=== PATIENT | female | born 1995 | race Caucasian/White ===

== ENCOUNTER 2022-09-30 11:06 | Outpatient (CLI) | payer OTHER, SELFPAY | END 2022-09-30 11:07 | disposition home or self-care (01) | PROVIDERS: PCP Physician Assistant; Visit Provider Internal Medicine Gastroenterology | DX: R93.3 Abnormal findings on diagnostic imaging of other parts of digestive tract (principal); K64.9 Unspecified hemorrhoids; K52.9 Noninfective gastroenteritis and colitis, unspecified; R19.7 Diarrhea, unspecified | CPT/HCPCS: 45380; 88305; 88342; J2250; J3010 ==

== ENCOUNTER 2023-07-01 13:05 | Outpatient (CLI) | payer OTHER, SELFPAY ==
--- NOTE | 2023-07-01 13:00 | CRLHL7_ITS ---
For Patients: As a result of the Cures Act, medical imaging exams and procedure reports are released immediately into your electronic medical record. You may view this report before your referring provider. If you have questions, please contact your health care provider. INDICATION: First trimester scan, establish dates. COMPARISON: None. TECHNIQUE: Real-time kennedy-scale imaging of the pelvis was performed. FINDINGS: Sonographic imaging demonstrates a single living intrauterine gestation. The embryo demonstrates a regular cardiac rate measuring 171 beats per minute. The embryo`s crown-rump length measurement of 2.8 cm corresponds to a gestational age of 9 weeks 4 days with a sonographic due date of 01/30/2024. There is a normal-appearing yolk sac. There are no gross abnormalities noted within the embryo at this early state of development. The gestational sac has a normal appearance. There is no evidence of a perigestational hemorrhage. The amount of fluid within the sac appears appropriate for gestational age. The cervix is closed. The myometrium appears normal. The ovaries are of normal size. Corpus luteal cyst right ovary. There are no suspicious fluid collections noted in the cul-de-sac. IMPRESSION: Normal first trimester OB ultrasound exam. Gestational age calculated at 9 weeks 4 days with a sonographic due date of 01/30/2024. Dictated by Maverick Armijo MD @ 07/02/2023 7:06:54 AM (Electronically Signed)
== END 2023-07-01 13:06 | disposition home or self-care (01) ==
LOC: US 13:06
PROVIDERS: PCP Physician Assistant; Visit Provider Advanced Practice Midwife
DX: Z34.91 Encounter for supervision of normal pregnancy, unspecified, first trimester (principal); Z3A.09 9 weeks gestation of pregnancy
CPT/HCPCS: 76817; 86703; 86706; 86803; 86850; 86900; 86901; 87086; 87340

== ENCOUNTER 2023-07-01 15:23 | Outpatient (CLI) | payer OTHER, SELFPAY | END 2023-07-01 15:24 | disposition home or self-care (01) | PROVIDERS: PCP Physician Assistant; Referring Provider Physician Assistant; Visit Provider Advanced Practice Midwife | DX: Z34.91 Encounter for supervision of normal pregnancy, unspecified, first trimester (principal); Z3A.09 9 weeks gestation of pregnancy | CPT/HCPCS: 86592; 86703; 86704; 86706; 86762; 86787; 86803; 86850; 86900; 86901; 87086; 87186; 87340 ==

== ENCOUNTER 2023-09-19 10:54 | Outpatient (CLI) | payer OTHER, SELFPAY ==
--- NOTE | 2023-09-19 11:00 | CRLHL7_ITS ---
For Patients: As a result of the Century Cures Act, medical imaging exams and procedure reports are released immediately into your electronic medical record. You may view this report before your referring provider. If you have questions, please contact your health care provider. INDICATION: Evaluate anatomy. COMPARISON: 07/01/2023 TECHNIQUE: Real time kennedy scale imaging of the fetus was performed as well as color Doppler analysis of the umbilical vessels. FINDINGS: Sonographic imaging demonstrates a single living intrauterine gestation. Fetus demonstrates a regular cardiac rate of 135 beats per minute. Fetus has a variable position. The placenta lies anteriorly without evidence of placenta previa. Placental edge 4.5 cm from the internal cervical os. Amniotic fluid volume appears normal. Single deepest vertical pocket: 4.8 cm. The cervix is closed and measures 4.1 cm in length. The composite ultrasound gestational age is calculated at 21 weeks 1 day with an estimated sonographic due date of 01/29/2024. The estimated weight is 414 grams which lies at the 69th %. The following biometric measurements were obtained: Biparietal diameter: 5.0 cm/21 weeks 1 day 63rd% Head circumference: 18.6 cm/21 weeks 0 days 45th% Abdominal circumference: 16.0 cm/21 weeks 1 day 52nd% Femur length: 3.7 cm/21 weeks 4 days 68th% The HC/AC ratio measures: 1.16 range (1.06-1.25) On anatomic survey, there is a normal appearance of the cerebral ventricles, cavum septi pellucidi, cisterna magna and cerebellum. The nose, lips, and facial profile appear normal. The cervical, thoracic and lumbar spine are well visualized and appear normal. There is a normal four-chamber heart view and the left and right ventricular outflow tracts appear normal. The diaphragm and stomach appear normal. The kidneys and bladder also appear normal. There is a normal three-vessel cord and cord insertion site. The four extremities appear normal. IMPRESSION: Normal OB ultrasound exam with concordance of clinical and sonographic dating. No intrinsic abnormalities noted on anatomic survey. Four-chamber heart view appears normal. Dictated by Maverick Armijo MD @ 09/19/2023 12:43:54 PM (Electronically Signed)
== END 2023-09-19 10:55 | disposition home or self-care (01) ==
LOC: US 10:54
PROVIDERS: PCP Physician Assistant; Visit Provider Advanced Practice Midwife
DX: Z34.92 Encounter for supervision of normal pregnancy, unspecified, second trimester (principal); Z3A.21 21 weeks gestation of pregnancy
CPT/HCPCS: 76805

== ENCOUNTER 2023-11-14 13:20 | Outpatient (CLI) | payer OTHER, SELFPAY | END 2023-11-14 13:21 | disposition home or self-care (01) | LOC: NFLDREF 11-17 02:34 | PROVIDERS: PCP Physician Assistant; Referring Provider Physician Assistant; Visit Provider Advanced Practice Midwife | DX: Z34.93 Encounter for supervision of normal pregnancy, unspecified, third trimester (principal); Z3A.28 28 weeks gestation of pregnancy | CPT/HCPCS: 86592 ==

== ENCOUNTER 2023-11-19 11:41 | Outpatient (CLI) | payer OTHER, SELFPAY | END 2023-11-19 11:42 | disposition home or self-care (01) | LOC: NFLDREF 11:42 | PROVIDERS: PCP Physician Assistant; Visit Provider Advanced Practice Midwife | DX: N93.9 Abnormal uterine and vaginal bleeding, unspecified (principal) | CPT/HCPCS: 87086 ==

== ENCOUNTER 2023-12-23 14:17 | Outpatient (CLI) | payer OTHER, SELFPAY | END 2023-12-23 14:18 | disposition home or self-care (01) | LOC: NFLDREF 12-24 07:00 | PROVIDERS: PCP Physician Assistant; Referring Provider Physician Assistant; Visit Provider Advanced Practice Midwife | DX: Z34.83 Encounter for supervision of other normal pregnancy, third trimester (principal) | CPT/HCPCS: 82728 ==

== ENCOUNTER 2024-01-07 09:02 | Outpatient (RCR) | payer OTHER, SELFPAY ==
--- NOTE | 2023-12-30 12:48 | PC.NURSE ---
Diagnosis: Iron deficiency anemia
--- NOTE | 2023-12-30 12:57 | URNOTE ---
Request received for authorization for Infed ([id number]). Prior authorization is not required per Erica on behalf of [employer].
[2024-01-07 09:10] VITALS: BP 121/82; PULSE 88; RESP 17; TEMP 36.7; O2SAT 100
[2024-01-07] MEDS: IRON DEXTRAN COMPLEX 25 MG in 0.9 % SODIUM CHLORIDE 100 ml 100 ML 402 MG IVPB (09:45)
[2024-01-07] MEDS: 0.9 % SODIUM CHLORIDE 250 ml IV (09:49)
[2024-01-07] MEDS: SODIUM CHLORIDE 0.9 % (FLUSH) 10 ML SYRINGE IVF (09:49)
[2024-01-07 10:48] VITALS: BP 107/72; PULSE 84; RESP 15; TEMP 36.1; O2SAT 96
[2024-01-07] MEDS: IRON DEXTRAN COMPLEX 975 MG in 0.9 % SODIUM CHLORIDE 250 ml 250 ML 269.5 MG IVPB (10:57)
[2024-01-07 12:40] VITALS: BP 120/81; PULSE 88; RESP 16; TEMP 36.3; O2SAT 94
== END 2024-07-05 23:59 | disposition home or self-care (01) ==
LOC: CCIC 09:02
PROVIDERS: PCP Physician Assistant; Referring Provider Physician Assistant; Visit Provider Advanced Practice Midwife
DX: D50.9 Iron deficiency anemia, unspecified (principal)
CPT/HCPCS: 96365; 96376; J1750; J7050

== ENCOUNTER 2024-01-07 13:36 | Outpatient (CLI) | payer OTHER, SELFPAY ==
[2024-01-08 15:11] LABS: Strep B DNA Probe Negative (Negative)
[2024-01-09 01:35] LABS: Strep B Susceptibility Needed? No
== END 2024-01-07 13:37 | disposition home or self-care (01) ==
PROVIDERS: PCP Physician Assistant; Visit Provider Advanced Practice Midwife
DX: Z34.93 Encounter for supervision of normal pregnancy, unspecified, third trimester (principal)
CPT/HCPCS: 87081; 87653; 96365; 96376; J1750

== ENCOUNTER 2024-01-27 06:19 | Inpatient (IN) | payer OTHER, SELFPAY ==
[2024-01-27] VITALS (97 sets, daily range): BP systolic 73–133; BP diastolic 41–83; PULSE 72–146; RESP 16; TEMP 36.8–37.4; O2SAT 99–100; BMI 30.3
[2024-01-27 05:15] LABS: Amnisure Rom* Negative
--- NOTE | 2024-01-27 06:44 | W.PM.LDBA ---
Subjective History of Present Illness Narrative: Tiffani is a 28 year old at 39 3/7 weeks gestation being admitted to Labor and Delivery for spontaneous onset of labor. She reports her labor began last evening while working. She was off at 2 am and went home to rest. Her contractions became more regular around 3 am where she then decided to present to triage. She denies any leaking of fluid or bleeding. She is supported in labor by her , Kumar. Her full history and physical was dictated by RANDEE Mcgee on 01/14/2024. Please see this for details. Specific Issues/Plans HB: Kumar H&P 01/14/24 by Juana Nye CNM 1. Crohn's colitis Recommended VTE prophylaxis if hospitalized and after delivery. (UpToDate) GI Dr Woody Rubin managing Remicade IV every 8 weeks Recommended baby ASA, pt to check with GI first 2. Recent gluteal abscess requiring drainage 06/06/23 incision and drainage, tx with antibiotics 3. Hx heart murmur as child, RESOLVED 4. Anemia. Hgb 10.1 at NOB. 34 wks 10.6 recommended iron supp was taking iron gummy 5. Asymptomatic e coli at NOB. Tx w/ antibiotics 07/01/2023 6. Declines 1 hour gct d/t Crohn's. Not willing to poke herself QID. Ordering continuous glucometer. All values WNL. OB - Problem Based A/P Additional Plan (1) Pain during labor: Status: Acute (2) Spontaneous onset of labor: Status: Acute (3) 39 weeks gestation of : Status: Acute (4) Crohn's colitis: Status: Acute Plan ASSESSMENT:? 28 at 39 3/7 weeks gestation? complicated by:?Crohns colitis, hx of heart murmur as child, anemia, asymptomatic bacteruria at NOB treated Labor type: Spontaneous, early labor? Category 1 FHR pattern.?? Labor complicated by: none? GBS negative? ? PLAN:? 1. Routine intrapartum cares as ordered. Continue with expectant management? 2. Monitoring per policy, intermittent? 3. Planning unmedicated . Desires water . Consent signed. Hep C negative. Candidate for analgesia of choice if desired.?? 4. Patient encouraged to reposition and ambulate to promote physiologic labor and .? 5. Anticipate ? Delivery/Labor/Induction Plan Plan: expectant management OB Exam Physical Exam Vital signs: Temp Pulse Resp BP 98.2 F 83 16 111/71 01/27/24 05:59 01/27/24 05:59 01/27/24 05:59 01/27/24 05:59 Narrative: Vitals Reviewed Constitutional:? Alert and oriented x3 HEENT:? Normocephalic, atraumatic Neck:? Supple Lungs:? Clear to auscultation bilaterally Heart:? Regular rate and rhythm, no murmur, rub or gallop Abdomen:? Soft, nontender, and gravid. Vertex by Donald's, confirmed with cervical exam. Extremities:? No edema or erythema Cervix: 5 cm/80%/-2 station/vertex per RN NST: 130 bpm/moderate variability/15x15 accelerations/early decelerations/contractions every 2-4 minutes Detailed Labor and Delivery Exam Patient Gravid: Yes
[2024-01-27 08:08] LABS: Basophils Percent Auto 0.1 % (0.0-3.0); Eosinophils Percent Auto 0.1 % (0.0-7.0); Hematocrit 36.5 % (33.0-51.0); Hemoglobin* 11.7 gm/dL (12.0-16.0); Immature Granulocytes Pct Auto 0.4 %; Lymphocytes Percent Auto 13.2 % (20-44); Mean Corpuscular HGB Conc 32 gm/dL (32-36); Mean Corpuscular Hemoglobin 28 pg (26-34); Mean Corpuscular Volume 86 fL (80-100); Monocytes Percent Auto 5.6 % (0.0-11.0); Neutrophils Percent Auto 80.6 % (42.0-72.0); Platelet Count* 260 K/uL (140-440); RDW Coefficient of Variation % 16.9 % (11.5-15.5); Red Blood Count 4.24 m/uL (4.00-5.20); White Blood Count* 13.87 K/uL (4.50-11.00)
[2024-01-27 08:11] LABS: Slide Review Reflex No
--- NOTE | 2024-01-27 08:57 | P.OBPN_ITS ---
Subjective Date Seen: 01/27/24 Narrative: ?Tiffani is coping well with labor pain/contractions. ?Kumar is with her for support. ?She requested a cervical exam and is now . She would like an epidural for comfort and pain management.? Objective Exam: VSS, afebrile General Appearance:? Calm, cooperative. ?No acute distress. ? Psychiatric Exam: Alert and oriented, appropriate affect Abdomen: Gravid Ctx: ?Q 2-3 min apart. ? ? ?Strong FHTs: ?Baseline: 145. ? ? Variability: moderate. ?EFM recently placed, previously was doing intermittent monitoring SVE: Membranes: Intact ? Vital Signs: Last Vital Signs Temp 98.2 F 01/27/24 05:59 Pulse 83 01/27/24 05:59 Resp 16 01/27/24 05:59 BP 111/71 01/27/24 05:59 Plan Plan: Assessment:?? at 39.3 weeks gestation?? GBS negative Patient is coping well with challenges of labor.?? Labor type: Spontaneous, Active labor? Category 1 FHR pattern.? complicated by: Crohns colitis, hx of heart murmur as child, anemia, asymptomatic bacteruria at [facility] treated Labor complicated by: none Plan:?? Anesthesia consult for epidural placement Continuous monitoring now with epidural placement. Continue with routine intrapartum cares as ordered.?? Patient encouraged to move and change positions to promote physiologic labor and .?? Anticipate progress to NVD. ?
[2024-01-27] MEDS: LACTATED RINGERS 1000 ML 1,000 ML IV ×2 (09:03→10:01)
[2024-01-27] MEDS: ROPIVACAINE 0.2% 100 ml 100 ML 12 MG EPIDURAL ×2 (09:40→17:11)
[2024-01-27] MEDS: BUPIVACAINE 0.25% PF 10 ML 10 ML ML EPIDURAL (09:40)
[2024-01-27] MEDS: PHENYLEPHRINE 100 MCG/ML SYRINGE IVP ×2 (09:46→10:33)
[2024-01-27] MEDS: ONDANSETRON 2 MG/ML inj 4 MG IV (10:31)
[2024-01-27] MEDS: ePHEDrine sulfate 5 MG/ML inj 10 MG IVP (10:47)
--- NOTE | 2024-01-27 10:51 | PM.ANBPRC ---
[facility] Medical History History of cardiac murmur as a child ?Z87.898 - Personal history of other specified conditions (ICD-10) Gluteal abscess ?L02.31 - Cutaneous abscess of buttock (ICD-10) Surgical History Fonda teeth extracted ?K08.409 - Partial loss of teeth, unspecified cause, unspecified class (ICD-10) Family History (Updated 01/14/24 @ 13:52 by Sara Nye CNM) Mother High blood pressure Grandfather Stroke Grandmother Alzheimers disease Grandfather Colon cancer Father Cancer of kidney Social History Narrative: SOCIAL? ? Education: Bachelors? ? Work: [employer] for [employer]? ? Partner: Kumar? , infantry weapons officer? Lives with: Kumar? ? Pets: 2 dogs? ? Abuse: Denies past ? Unable to assess current, partner present? ? Special Diet: no dairy, (cheese is ok). Eats high fiber foods, Low sugar, avoids very processed meats. ? ? Ok with a blood transfusion: yes? ? Culture or scientology beliefs: denies? RISK FACTORS? ? Exercise Times/wk: about 1 year ago, 20-30 mins cardio and weightlifting about 3-4 times a week. No currently doing but plans to start again when nausea improves. ? ? Depression/Anxiety: denies? ? Previous Treatments NA ? Therapy NA BENITO: 4 PHQ 9: 3? ? Seat Belt Use: Routinely ? Smoking: Denies past/present? ? Alcohol/day: Denies while ? ?Rarely when not Caffeine: Diet Coke daily maybe two. ? ? Drug Use: Denies past/present? What is your current living situation?: I presently have a place to live Problems where you live: no known problems In the past 12 months, utilities in danger of being shut off: no In past 12 months, lack of transportation kept you from medical appts, meetings, work, or getting things needed for daily living: no In the past 12 mos, have been you worried that your food would run out before you had money to buy more?: never true In the past 12 mos, the food you bought just didn't last and you didn't have money to buy more?: never true Smoking Status: Never smoker How often does anyone, including family, friends and others, physically hurt you: never How often does anyone, including family, friends and others, insult or talk down to you: never How often does anyone, including family, friends and others, threaten you with harm: never How often does anyone, including family, friends and others, scream or curse at you: never Little interest or pleasure in doing things: not at all Feeling down, depressed, or hopeless: not at all Meds Home Medications and Allergies Home Medications ?Medication ?Instructions ?Recorded ?Confirmed ?Type infliximab 100 mg intravenous IV 07/01/23 01/20/24 History solution (Remicade) aspirin 81 mg tablet,delayed 81 mg PO QDAY 09/19/23 01/27/24 History release docosahexaenoic acid 200 mg mg PO 09/19/23 01/20/24 History capsule ( DHA) magnesium citrate 100 mg capsule 100 mg PO QDAY PRN 09/19/23 01/27/24 History omeprazole magnesium 20 mg 20 mg PO QDAY 01/14/24 01/27/24 History capsule,delayed release (Acid Evp Chief Exploration Officer (omeprazole)) Allergies Allergy/AdvReac Type Severity Reaction Status Date / Time No Known Drug Allergies Allergy Verified 01/20/24 08:22 Results Labs Labs: Laboratory Results - last 24 hr 01/27/24 01/27/24 04:55 07:41 WBC 13.87 H RBC 4.24 Hgb 11.7 L Hct 36.5 MCV 86 MCH 28 MCHC 32 RDW Coeff of Andreas 16.9 H Plt Count 260 Neut % (Auto) 80.6 H Lymph % (Auto) 13.2 L [place] % (Auto) 5.6 Eos % (Auto) 0.1 Baso % (Auto) 0.1 Neut # (Auto) 11.20 H Lymph # (Auto) 1.80 [place] # (Auto) 0.80 Eos # (Auto) 0.00 Baso # (Auto) 0.00 Abs Immat Gran (auto) 0.10 Imm/Tot Granulo (auto) 0.4 Membrane Rupture Negative Blood Type A Positive Antibody Screen NEGATIVE Vital Signs Vital Signs: Last Vital Signs Temp 98.2 F 01/27/24 05:59 Pulse 86 01/27/24 10:47 Resp 16 01/27/24 05:59 BP 90/52 L 01/27/24 10:47 Pulse Ox 99 01/27/24 09:36 Weight: 80.104 kg Height: 162.56 cm Anesthesia Procedures Epidural Insertion Patient Location: OB Start Time: :15 Stop Time: 09:45 Start Date: 01/27/24 Stop Date: 01/27/24 Reason for Block: procedure for pain Patient Position: sitting Performed By: Gavi More Preanesthetic Checklist: IV checked, risks and benefits discussed, monitors and equipment checked, timeout performed and anesthesia consent Prep: chlorhexidine gluconate Monitoring: blood pressure monitoring, continuous pulse oximetry and heart rate Approach: midline Vertebral Space: lumbar (1-5) Epidural Technique: IDRIS saline Needle Type: Tuohy needle Injection Technique: continuous catheter Needle gauge: 17 Needle Length (cm): 10 cm Needle Insertion Depth (cm): 9 Catheter Gauge: 19 Catheter Type: multi-orifice Catheter at skin depth (cm): 15 Test Dose Result: negative and lidocaine 1.5% with epinephrine 1 to 200,000
--- NOTE | 2024-01-27 11:04 | PM.OBPNL ---
Subjective Date Seen: 01/27/24 Narrative: ?Demetri is coping well with labor pain/contractions. ?Kumar is with her for support. ?She would like to continue with her epidural for comfort and pain management.?She is now feeling only pressure with contractions. She has had some low blood pressures after epidural placement but seems to have stabilized now. Getting second bag of IV fluid currently. Objective Exam: VSS, afebrile General Appearance:? Calm, cooperative. ?No acute distress. ? Psychiatric Exam: Alert and oriented, appropriate affect Abdomen: Gravid Ctx: ?Q 2-4 min apart. ? ? ?Strong FHTs: ?Baseline: 145. ? ? Variability: moderate. ?Accels: -. ? ?Decels: ?-. SVE: 7/100/0 Membranes: ?AROM for minimal fluid. Difficult to tell if clear. Vital Signs: Last Vital Signs Temp 98.2 F 01/27/24 05:59 Pulse 78 01/27/24 11:02 Resp 16 01/27/24 05:59 BP 96/53 L 01/27/24 11:02 Pulse Ox 99 01/27/24 09:36 Assessment Assessment: active labor Amniotic Membrane Status: AROM Status: Category ll Plan Plan: Assessment:?? at 39.3 weeks gestation?? GBS neg Patient is coping well with challenges of labor.?? Labor type: Spontaneous, Active labor? Category 2 FHR pattern.? complicated by: Crohns colitis, hx of heart murmur as child, anemia, asymptomatic bacteruria at B treated Labor complicated by: none? Plan:?? AROM for minimal fluid after discussion of R/B/A, pt consented with shared decision making Continue with routine intrapartum cares as ordered.?? Patient encouraged to move and change positions to promote physiologic labor and .?? Epidural per anesthesia Continuous monitoring now with epidural in place Anticipate progress to NVD. ?
[2024-01-27] MEDS: LACTATED RINGERS 1000 ML 1,000 ML 999 ML IV (11:31)
[2024-01-27] MEDS: OXYTOCIN 30 unit/500 ML in NS 30 UNIT/500 ML BAG IVPB (14:53)
--- NOTE | 2024-01-27 15:37 | PM.OBPNL ---
Subjective Date Seen: 01/27/24 Narrative: ?Tiffani is coping well with labor pain/contractions. ?Kumar is with her for support. ?She would like to continue with her epidural for comfort and pain management.?She was recently started on IV Pitocin for augmentation after not making change for the last 4 hours. She is feeling a lot of pressure with her contractions at this time. Objective Exam: VSS, afebrile General Appearance:? Calm, cooperative. ?No acute distress. ? Psychiatric Exam: Alert and oriented, appropriate affect Abdomen: Gravid Ctx: ?Q 3-5 min apart. ? ? ?Strong FHTs: ?Baseline: 135. ? ? Variability: moderate with periods of minimal. ?Accels: +. ? ?Decels: ?-. SVE: 9/100/0 Membranes: ?AROM clear fluid at 1055 Vital Signs: Last Vital Signs Temp 98.8 F 01/27/24 15:34 Pulse 111 H 01/27/24 15:25 Resp 16 01/27/24 05:59 BP 113/68 01/27/24 15:25 Pulse Ox 99 01/27/24 09:36 Contractions Pitocin Rate (mU/min): 2 Assessment Assessment: active labor Amniotic Membrane Status: AROM Status: Category l Plan Plan: Assessment:?? at 39.3 weeks gestation?? GBS negative Patient is coping well with challenges of labor.?? Labor type: Augmented, Active labor? Category 1 FHR pattern.? complicated by: Crohns colitis, hx of heart murmur as child, anemia, asymptomatic bacteruria at NOB treated ? Plan:?? Continue with IV Pitocin augmentation per protocol Continue with routine intrapartum cares as ordered.?? Patient encouraged to move and change positions to promote physiologic labor and .?? Epidural per anesthesia orders. Anticipate progress to NVD. ?
[2024-01-27] MEDS: LACTATED RINGERS 1000 ML 1,000 ML 125 ML IV ×2 (19:21→20:21)
[2024-01-27] MEDS: LIDOCAINE 1 % PF 30 ML INJECTION (20:45)
--- NOTE | 2024-01-27 21:50 | W.PM.OBVAGDE ---
OB Procedure Vag Delivery Mother Details Mother Details: The patient is a 28 year-old, 2, Para 1, admitted on 01/27/24 at 39.3 weeks gestation. : 2 Para: 1 Weeks Gestation: 39.3 Admission Date: 01/27/24 Additional Details Amniotic Membrane Status: AROM Amniotic Membrane Rupture Date: 01/27/24 Amniotic Membrane Rupture Time: 10:55 Amniotic Membrane Fluid Description: Clear Analgesia/Anesthesia Type: Epidural Waterbirth: No Pitcoin: Yes Intrapartal Events: Labor Augmentation Delivery augmentation: rupture of membranes and pitocin Labor Onset: 02:00 Complete: 19:09 Pushin:09 Heart: heart tones during second stage were continuously monitored. Tachycardic FHR 160-170's with early and late decelerations, moderate then minimal variability. Delivery Details Delivery Date: 01/27/24 Delivery Time: 20:34 Route of delivery: Gender: Female Infant Viability: Alive; Heart Rate Present Position at Delivery: OA Delivery Details: 28?y.o?at 39.3 weeks.? Tiffani arrived in labor after having started stronger contractions early this morning around 0200. She labored until she was approximately 5cm then requested an epidural, after this was placed her cervix was 7 cm, then stalled there with no change for approximately 4 hours. Decision made to start IV Pitocin for augmentation, she then progressed to complete. Was repositioned often while in bed with her epidural in place. At the time she became complete FHR became tachycardic and remained this way until delivery. Pediatric provider was present at delivery for evaluation of immediately after . ? She became complete at 1908.??She pushed in right and left tilt positions effectively.? Spontaneous vaginal delivery at 2033 of?a viable? female .??Delivered in vertex OA position.??Shoulders delivered easily.? Spontaneous cry noted.?? placed on maternal abdomen.??Cord?was clamped and cut after a 5+ minute delay.??Nose and mouth were bulb suctioned.? Shoulder dystocia: no? Nuchal cord: no? Meconium stained?fluid: no? Water : no? ? ? 7 at 1 minute and 9 at 5 minutes.? Weight is pending. ? Placenta delivered spontaneously and?complete?at 2040 with a?3 vessel?cord.?? Bleeding controlled with fundal massage and?pitocin?for AMTSL.? ? Mother and infant were stable after delivery.? ? Lacerations:?Complex lacerations to periurethral area very close to the clitoris and deep 2nd degree vaginal and sulcal tear which was repaired by Dr. Desai, see her note for details. ? Bleeding?post delivery?was: minimal. ?The fundus was firm to palpation.? Blood loss: 500?mL.? Blood loss measurement type: QBL? ? ? Sponge,?lap?and needles counts are correct.? Mother and infant were stable after delivery.? 1 Minute Interval Total Score: 7 5 Minute Interval Total Score: 9 Additional Details Shoulder Dystocia: No Placenta Delivery Time: 20:41 Placental Delivery Description: Spontaneous Delivery repair: Vicryl Procedure Done: Global Blood Loss: 500 Laceration: Vaginal - 2nd Degree (complex tear repaired by Dr. Desai) Blood Loss Measurement Type: QBL Bakri Used: No Sponge/Need Count Correct: Yes Cord Vessel Description: 3 Vessels Event Summary Status: Mother and were stable after delivery. Disposition: floor
[2024-01-28] VITALS: BP 114/78; PULSE 84; RESP 16; TEMP 37; O2SAT 98
[2024-01-28] MEDS: ACETAMINOPHEN 500 MG TABLET 1000 MG PO ×4 (01:03→19:50)
[2024-01-28 03:44] VITALS: BP 112/67; PULSE 86; RESP 18; TEMP 37.1; O2SAT 98
[2024-01-28 06:58] LABS: Hemoglobin* 9.4 gm/dL (12.0-16.0)
[2024-01-28 07:53] VITALS: BP 115/74; PULSE 78; RESP 18; TEMP 36.9; O2SAT 99
[2024-01-28] MEDS: FERROUS SULFATE 325 MG TABLET PO (09:26)
[2024-01-28] MEDS: DOCUSATE SODIUM 100 MG CAPSULE PO (09:26)
[2024-01-28 13:04] VITALS: BP 120/79; PULSE 86; RESP 18; TEMP 36.9; O2SAT 99
--- NOTE | 2024-01-28 14:11 | P.OBPN_ITS ---
OB - PN:Subj Subjective Date Seen: 01/28/24 Patient comments OB post-: no complaints, pain well controlled, tolerating diet and flatus present [place] status: and doing well [place] feeding status: exclusively Narrative: Tiffani is feeling well.? Her pain is well controlled with current medications.?Discussed other option for pain as she is unable to take ibuprofen but she declines the need for this at this time. Encouraged her to reach out of her pain is starting to increase and to not let it get too bad before requesting additional medication. She has no new complaints.? Urinary output is adequate and she is voiding without difficulty.? Has a good appetite, is tolerating a general diet, is passing flatus, and has not had a bowel movement.? Has small amount of rubra lochia.? She is ambulating well.?She is and feels that it is going well at this time. Her hemoglobin this morning is down to 9.4 but denies feeling dizzy, light headed or fatigued. Will start her on PO iron supplement. She was considering going home but baby is to stay for monitoring for an increased temperature after delivery. OB - PN: Obj Exam Physical Exam: Vital signs: Temp Pulse Resp BP Pulse Ox O2 Del Method 98.4 F 86 18 120/79 99 Room Air 01/28/24 13:04 01/28/24 13:04 01/28/24 13:04 01/28/24 13:04 01/28/24 13:04 01/28/24 13:04 Narrative: GENERAL APPEARANCE:? normal affect, alert, no distress? MOOD:? appropriate? CHEST:? clear to auscultation and percussion? HEART:? regular rate and rhythm? ABDOMEN:? soft, non-tender the uterine fundus is U/2 and is appropriate for the stage of recovery. ? PERINEUM:? mild edema of the perineum, there is a 2nd degree laceration that is healing well.? EXTREMITIES:? normal and no edema? OB - PN: Obj Data Labs Labs: Laboratory Results - last 24 hr 01/28/24 05:43 Hgb 9.4 L OB - PN: A/P Delivery Assessment and Plan (1) Crohn's colitis: Status: Acute (2) Lactating mother: Status: Acute (3) care following vaginal delivery: Status: Acute Plan day: 1 Plan: routine care Comments: Anticipate discharge home tomorrow.
--- NOTE | 2024-01-28 14:49 | PM.OBCN1 ---
OB - CN: HPI Date of Consult Date Seen: 01/27/24 Consult date: 01/28/24 Requesting Physician: Reanna Zamora CNM Primary Care Provider: Emily Mathew PA-C Consult Narrative Reason for consult: vaginal repair Narrative: The patient is a 28 year old G 2 P 1011 who just delivered vaginally and i was asked to evaluate and help with repairs of lacerations. History History 2 Elective abortions 1 Para 1 Spontaneous abortions Hx # Term Pregnancies Ectopic pregnancies Hx # Pregnancies Multiple births Number of Living Children 0 Past Pregnancies Del. Date GA/Weeks Outcome Route wt Inf Gender Labor Lgth Anesthesia Location Provider Compli Unknown elective Labs GBS status: negative OB Labs: Lab Assessment Start: 01/27/24 06:11 Freq: ONCE Status: Complete Protocol: PC.OBGBS Activity Type Activity Date Activity User E-sign Co-sign Detail Recorded Client Recorded Date Recorded By Document 01/27/24 06:11 DESSELLIEM Desktop 01/27/24 06:16 DESSELLIEM 01/27/24 06:11 Lab Assessment GBS Status negative GBS Additional Criteria None No Treatment Needed OK Are Labs Available Yes Maternal Blood Type A Maternal RH Factor Positive Evaluate Maternal Rubella Immune Status Immune Hepatitis B Surface Antigen Negative Maternal HIV Status Negative Maternal Syphillis (RPR) Status Negative PFSH PFSH Medical History History of cardiac murmur as a child ?Z87.898 - Personal history of other specified conditions (ICD-10) Gluteal abscess ?L02.31 - Cutaneous abscess of buttock (ICD-10) Surgical History [place] teeth extracted ?K08.409 - Partial loss of teeth, unspecified cause, unspecified class (ICD-10) Family History (Updated 01/14/24 @ 13:52 by Sara Ney CNM) Mother High blood pressure Grandfather Stroke Grandmother Alzheimers disease Grandfather Colon cancer Father Cancer of kidney Social History Narrative: SOCIAL? ? Education: Bachelors? ? Work: dispatcher for [employer]? ? Partner: Kumar? , aviation ordnance officer? Lives with: Kumar? ? Pets: 2 dogs? ? Abuse: Denies past ? Unable to assess current, partner present? ? Special Diet: no dairy, (cheese is ok). Eats high fiber foods, Low sugar, avoids very processed meats. ? ? Ok with a blood transfusion: yes? ? Culture or caodaism beliefs: denies? RISK FACTORS? ? Exercise Times/wk: about 1 year ago, 20-30 mins cardio and weightlifting about 3-4 times a week. No currently doing but plans to start again when nausea improves. ? ? Depression/Anxiety: denies? ? Previous Treatments NA ? Therapy NA BENITO: 4 PHQ 9: 3? ? Seat Belt Use: Routinely ? Smoking: Denies past/present? ? Alcohol/day: Denies while ? ?Rarely when not Caffeine: Diet Coke daily maybe two. ? ? Drug Use: Denies past/present? What is your current living situation?: I presently have a place to live Problems where you live: no known problems In the past 12 months, utilities in danger of being shut off: no In past 12 months, lack of transportation kept you from medical appts, meetings, work, or getting things needed for daily living: no In the past 12 mos, have been you worried that your food would run out before you had money to buy more?: never true In the past 12 mos, the food you bought just didn't last and you didn't have money to buy more?: never true Smoking Status: Never smoker How often does anyone, including family, friends and others, physically hurt you: never How often does anyone, including family, friends and others, insult or talk down to you: never How often does anyone, including family, friends and others, threaten you with harm: never How often does anyone, including family, friends and others, scream or curse at you: never Little interest or pleasure in doing things: not at all Feeling down, depressed, or hopeless: not at all Meds Home Medications and Allergies Home Medications ?Medication ?Instructions ?Recorded ?Confirmed ?Type infliximab 100 mg intravenous IV 07/01/23 01/20/24 History solution (Remicade) aspirin 81 mg tablet,delayed 81 mg PO QDAY 09/19/23 01/27/24 History release docosahexaenoic acid 200 mg 1 mg PO DAILY 09/19/23 01/27/24 History capsule ( DHA) magnesium citrate 100 mg capsule 100 mg PO QDAY PRN 09/19/23 01/27/24 History omeprazole magnesium 20 mg 20 mg PO QDAY 01/14/24 01/27/24 History capsule,delayed release (Acid Photo Editor (omeprazole)) Allergies Allergy/AdvReac Type Severity Reaction Status Date / Time No Known Drug Allergies Allergy Verified 01/20/24 08:22 OB - H&P: Exam Physical Exam: Vital signs: Temp Pulse Resp BP Pulse Ox O2 Del Method 98.4 F 86 18 120/79 99 Room Air 01/28/24 13:04 01/28/24 13:04 01/28/24 13:04 01/28/24 13:04 01/28/24 13:04 01/28/24 13:04 Narrative: Upon arrival to patients room, CNM had already delivered placenta and patient was doing well and stable. I was asked to evaluate a complex vaginal laceration close to urethra. Patient with epidural in place, but areas of repair were infiltrated with 1% lidocaine plain as she was experiencing pain. Lacerations evaluated, on periurethral at 12 o clock extending from edge of external urethral meatus to clitoris, deep and with active bright red bleeding. A red rubber catheter was placed into the bladder and taped to the side of the leg for continuous identification of the urethra. The laceration was repaired with interrupted stitches of Vicryl 4-0. Hemostasis secured. A right sulcal laceration also identified and repaired with Vicryl 3-0 in a continuous interlocking fashion. Hemostasis secured. A perineal second degree laceration was also identified and repaired in the usual manner with Vicryl 3-0 in a continuous interlocking fashion. Hemostasis secured. Bladder catheter was replaced at the end of procedure after all repairs completed and easy passage noted as well as clear urine as output. Patient tolerated procedure well. OB - Results Labs Labs: Short CBC 01/28/24 Range/Units 05:43 Hgb 9.4 L (12.0-16.0) gm/dL OB - CN: A/P Assessment and Plan (1) Crohn's colitis: Status: Acute (2) Lactating mother: Status: Acute (3) care following vaginal delivery: Status: Acute Plan Repair of complex vaginal lacerations after vaginal delivery.
[2024-01-28 15:44] VITALS: BP 115/74; PULSE 93; RESP 16; TEMP 36.7; O2SAT 98
[2024-01-28 18:06] LABS: Rapid Plasma Reagin (RPR) Non Reactive (Non Reactive)
[2024-01-28 22:06] VITALS: BP 107/68; PULSE 78; RESP 16; TEMP 36.3; O2SAT 99
[2024-01-29 02:00] VITALS: BP 117/75; PULSE 85; RESP 16; TEMP 36.8; O2SAT 98
--- NOTE | 2024-01-29 08:31 | P.DS_ITS ---
DS: Providers Provider Date Seen: 01/29/24 Date of admission: 01/27/24 06:19 Primary care physician: Emily Mathew PA-C Admitting Clinician: Reanna Zamora CNM Consults: 01/27/24 22:08 Consult to Physician [CONS] Routine Comment: for laceration repair Consulting Provider: Macy Dumont Has provider been notified: Yes Attending Physician on discharge: Reanna Zamora CNM DS: Diagnosis Discharge Diagnosis (1) care following vaginal delivery: Status: Acute (2) Lactating mother: Status: Acute Exam Narrative: Exam Narrative: GENERAL APPEARANCE:? normal affect, alert, no distress MOOD:? appropriate CHEST:? clear to auscultation HEART:? regular rate and rhythm ABDOMEN:? soft, non-tender the uterine fundus is at Umbilicus, Midline and is appropriate for the stage of recovery. PERINEUM:? mild edema of the perineum, there is a Perineal Laceration,?vaginal and periurethral that are healing well. EXTREMITIES:? normal and no edema Const: Vital Signs, click to edit/add: Vital Signs - 24 hr 01/28/24 13:04 01/28/24 15:44 01/28/24 22:06 Temperature 98.4 F 98.1 F 97.4 F L Pulse Rate [Pulse Oximeter] 86 93 78 Respiratory Rate 18 16 16 Blood Pressure [Ri ght Arm] 120/79 115/74 107/68 Pulse Oximetry 99 98 99 Oxygen Delivery Me thod Room Air Room Air Room Air 01/29/24 02:00 Temperature 98.3 F Pulse Rate [Pulse Oximeter] 85 Respiratory Rate 16 Blood Pressure [Ri ght Arm] 117/75 Pulse Oximetry 98 Oxygen Delivery Me thod Room Air Documenting provider has reviewed patient's vital signs: yes OB - DS: Summary Hospital Course Hospital Course: Tiffani is a 28 y.o. G 2 P 1 who was admitted to [facility] for spontaneous onset of labor. ?She had a NVD that was uncomplicated. The patient feels well. ?The pain is well controlled with current medications. ?She has no new complaints. ?She is breast feeding and reports things are going well. the patient has done well.? Vitals have been stable.? She has remained afebrile.? Has a good appetite, is tolerating a general diet. ?She is voiding without difficulty.? She is passing gas and has not had a bowel movement.? She is ambulating and denies any dizziness.? Has small amount of rubra lochia. She is planning NFP/condoms for prevention. Problems: none plan: Discharge home with baby. Follow up in 2 weeks and 6 weeks. , may see if needed Hgb 9.4. Iron supplement ordered orally every other day Peripartum Data Infant delivery method: Vaginal Laceration description: Vaginal - 2nd Degree complications: none Waddy Gender: Female Discharge Plan: Home Status at Discharge Functional status at discharge: independent ambulation Overall status at discharge: patient is progressing back to baseline Time Spent with Patient Time attestation: Total time spent providing and/or coordinating discharge services: Time spent: Less than 30 minutes Discharge Plan Discharge Disposition: Home, Self-Care Date of Admission: 01/27/24 06:19 Consulting Providers: Macy Dumont Primary Care Provider: Emily Mathew Condition: Stable Anticipated Discharge Date/Time: 01/29/24 12:00 Discharge Medications: New ferrous sulfate 325 mg (65 mg iron) Tablet 325 mg PO Q48H Qty: 90 0RF acetaminophen 500 mg Tablet 1,000 mg PO Q6H PRNQty: 0 0RF docusate sodium 100 mg Capsule 100 mg PO DAILY Qty: 0 0RF Continued DHA 200 mg capsule 1 mg PO DAILY magnesium citrate 100 mg capsule 100 mg PO QDAY PRN infliximab [Remicade] 100 mg recon soln IV omeprazole magnesium [Acid Sales Performance Analyst (omeprazole)] 20 mg capsule,delayed release(DR/EC) 20 mg PO QDAY Discontinued aspirin 81 mg tablet,delayed release (DR/EC) 81 mg PO QDAY (DME) blood-glucose meter,continuous Misc See Rx Instructions .Route Qty: 1 0RF Rx Instructions: As directed (DME) diabetic supplies, miscellan. Misc See Rx Instructions .Route Qty: 1 0RF Rx Instructions: As directed Discharge Orders: Discharge Order (Routine); Ordered 01/29/24 Ordered By: Reanna Zamora Patient Education: OB Over the Counter Medication Information, OB Vaginal/Breast Feeding Additional Instructions: Discharge instructions were reviewed with the patient including signs and symptoms of infection and home going medications Nothing vaginally for 6 weeks: no tampons or intercourse Do not drive while taking narcotic pain medication(s) Off Work or School for 6 weeks 2-week visit: discuss infant feeding concerns, review control options and screen for anxiety/depression. 6-week visit for an annual exam. consultation services are available to all mothers and babies for the first year after delivery.? To make an appointment, please call [phone]. Activity Level: Activity as Tolerated Discharge Diet: Regular Follow Up Appointments: [facility] [Provider Group] Forms: [employer] Info Instructions
[2024-01-29] MEDS: ACETAMINOPHEN 500 MG TABLET 1000 MG PO (08:56)
[2024-01-29] MEDS: DOCUSATE SODIUM 100 MG CAPSULE PO (08:56)
[2024-01-29 09:05] VITALS: BP 119/81; PULSE 85; RESP 16; TEMP 36.6
--- NOTE | 2024-01-29 12:42 | PM.ANPOST ---
Post Anesthesia Note Post Anesthesia Note Patient seen: Inpatient Respiratory Status: adequate Cardiovascular Status: adequate Mental Status: baseline Pain: adequate Temp: baseline Anesthetic awareness: N/A Complications: none Follow care: none
== END 2024-01-29 10:48 | disposition home or self-care (01) | DRG 806 ==
LOC: OB OUT 06:19 → OB 06:19
PROVIDERS: Advanced Practice Midwife; Admitting Provider Advanced Practice Midwife; PCP Physician Assistant; Visit Provider Advanced Practice Midwife
DX: O70.1 Second degree perineal laceration during delivery (principal); K50.90 Crohn's disease, unspecified, without complications; Z37.0 Single live birth; O99.62 Diseases of the digestive system complicating childbirth; Z3A.39 39 weeks gestation of pregnancy; O71.82 Other specified trauma to perineum and vulva; O99.013 Anemia complicating pregnancy, third trimester; D64.9 Anemia, unspecified
CPT/HCPCS: 01967; 36415; 84112; 85018; 85025; 86592; 86850; 86900; 86901; A9270; J0665; J2001; J2371; J2405; J2795; J7120

== ENCOUNTER 2024-02-20 10:54 | Outpatient (CLI) | payer OTHER, SELFPAY ==
--- NOTE | 2024-02-20 12:22 | W.PM.LAC.MC ---
Consult Note - Mom Date of Visit Date of visit: 02/20/24 surgical product sales consultant: Iliana Mojica Visit Code: Visit Patient's Information Phone number: [phone] : 2 Para: 1 Allergies No Known Drug Allergies Allergy (Verified 02/10/24 10:04) Mother's Medical History: Medical History (Updated 02/11/24 @ 09:33 by Reanna Zamora CNM) History of cardiac murmur as a child ?Z87.898 - Personal history of other specified conditions (ICD-10) Gluteal abscess ?L02.31 - Cutaneous abscess of buttock (ICD-10) Type of Contraception: Natural family planning Work Plans: Will return in a few months Delivery Information Delivery type: Vaginal Weight: 3.37 kg Discharge Weight: 3.13 kg Baby's Information Medications: Vitamin D Baby's Age at Visit: 24 days Baby's Provider or Clinic: [facility] Jaundice: No Reason for Consult Reason for Consult: Frantic latching at times, questioning milk supply Past Experience Past Experience: No Current Frequency of Day Feedings: every 2 hours Frequency of Night Feedings: every 2-3 hours Both Breasts: No Suck: strong, frantic at times Latch: ok per mom Length of Time: 10-15 min on 1 side, [place] on 2nd side Goals: Ideally 1 year, have a stash of milk in freezer for bottles and as needed Pumping Pumping: Yes Quantity Pumped: 1-2 oz Supplementing EMB Supplement: Yes Formula Supplement: Yes Baby Elimination Number of Wet Diapers a Day: 6 or more Number of BM a Day: 6 or more, yellow and seedy Breast/Nipple Condition Engorgement: No Maternal Nipple Condition - Left: Common Nipple Maternal Nipple Condition - Right: Common Nipple Sore Nipples: No Onsite Pre-Feed weight: 3.7 kg Post-Feed weight: 3.76 kg Milk Transferred (mL): 60 Pre-Nursing Left Nipple: Within Normal Limits Pre-Nursing Right Nipple: Within Normal Limits Post-Nursing Left Nipple: Within Normal Limits Post-Nursing Right Nipple: Within Normal Limits Assessments/Interventions Assessments/Interventions: Mom able to achieve a wide deep latch with milk transfer noted. Baby latched better per mom and stayed attached better than at home. Audible swallows appreciated during entire feeding. Mom verbalized she could feel strong pulls from the baby but it was comfortable. Plan: Breastfeed 10-15 min ea breast, listen for active swallowing. Work on wide, deep latch using asymmetric latch technique for increased milk transfer or baby. Pump both breasts for 15-20 min after feeding for about the next week or so to build supply back up and have a little ?stash? as desired in the freezer, a full 20 minutes if pumping instead of . When using the [place] during a feeding, use it as a ticket collector vs a pump so baby is able to nurse on other breast and get the milk for that feeding. Feed baby as needed any pumped/expressed milk to meet hunger needs. Use formula if needed to supplement Expect to feed every 2-3 hours, cluster feedings every hour are expected, especially in the evening, for 2-4 hours. Try skin to skin to increase milk production Call with questions/concerns and follow up as needed Mom questions answered. Time spent with mom and baby: 70 minutes Meds Home Medications and Allergies Home Medications ?Medication ?Instructions ?Recorded ?Confirmed ?Type infliximab 100 mg intravenous IV 07/01/23 02/10/24 History solution (Remicade) docosahexaenoic acid 200 mg 1 mg PO DAILY 09/19/23 02/20/24 History capsule ( DHA) magnesium citrate 100 mg capsule 100 mg PO QDAY PRN 09/19/23 02/10/24 History Allergies Allergy/AdvReac Type Severity Reaction Status Date / Time No Known Drug Allergies Allergy Verified 02/10/24 10:04
== END 2024-02-20 10:55 | disposition home or self-care (01) ==
LOC: OB LAC 10:56
PROVIDERS: Visit Provider Obstetrics & Gynecology
DX: Z39.1 Encounter for care and examination of lactating mother (principal)
CPT/HCPCS: G0463

== ENCOUNTER 2024-04-22 11:00 | Outpatient (RCR) | payer OTHER, SELFPAY | END 2024-08-20 23:59 | disposition home or self-care (01) | PROVIDERS: Visit Provider Midwife | DX: Z39.1 Encounter for care and examination of lactating mother (principal); R39.15 Urgency of urination; K50.119 Crohn's disease of large intestine with unspecified complications; R27.8 Other lack of coordination; Z51.89 Encounter for other specified aftercare | CPT/HCPCS: 97110; 97112; 97140; 97162; 97535 ==

== ENCOUNTER 2025-05-05 09:11 | Outpatient (CLI) | payer OTHER, SELFPAY ==
--- NOTE | 2025-05-05 09:15 | CRLHL7_ITS ---
For Patients: As a result of the Century Cures Act, medical imaging exams and procedure reports are released immediately into your electronic medical record. You may view this report before your referring provider. If you have questions, please contact your health care provider. OBSTETRICAL ULTRASOUND TRANSVAGINAL, 05/05/2025 CLINICAL INDICATION: Dating and viability. LMP: 03/10/2025 JANELL by LMP: 12/15/2025 Gestational age: 8 weeks 0 days Previous ultrasound: No TECHNIQUE: Real-time kennedy-scale imaging of the fetus was performed transvaginal. Transvaginal imaging was performed for better visualization of the endometrium and ovaries. FINDINGS: CRL: 1.9 cm, 8 weeks 3 days; JANELL 12/12/2025 heart rate: 172 BPM Gestational sac: 3.8 cm, appears within normal limits Yolk sac: 3.7 mm, appears within normal limits Right ovary: Within normal limits; 3.6 x 2.2 x 1.7 cm Left ovary: Within normal limits; 3.5 x 2.3 x 2.1 cm IMPRESSION: 1. Single living intrauterine measures 8 weeks 3 days with sonographic due date of 12/12/2025. 2. Subchorionic hemorrhage measures 2.4 x 0.6 x 3.2 cm. MAVERICK WALKER M.D. Diagnostic Radiologist [email or web address] Transcribed: 2:[address]/Dictated by: Maverick Walker MD @ 05/05/2025 1:09:00 PM (Electronically Signed)
== END 2025-05-05 09:12 | disposition home or self-care (01) ==
LOC: US 09:12
PROVIDERS: PCP Advanced Practice Midwife; Visit Provider Advanced Practice Midwife
DX: O20.9 Hemorrhage in early pregnancy, unspecified (principal); Z3A.08 8 weeks gestation of pregnancy
CPT/HCPCS: 76817; 83021; 86592; 86703; 86704; 86762; 86787; 86803; 86850; 87086; 87340

== ENCOUNTER 2025-07-27 10:14 | Outpatient (CLI) | payer OTHER, SELFPAY | END 2025-07-27 10:15 | disposition home or self-care (01) | LOC: US 10:14 | PROVIDERS: PCP Advanced Practice Midwife; Visit Provider Midwife | DX: O99.612 Diseases of the digestive system complicating pregnancy, second trimester (principal); Z3A.19 19 weeks gestation of pregnancy; K50.119 Crohn's disease of large intestine with unspecified complications | CPT/HCPCS: 76811 ==